=== PATIENT | male | born 1970 | race African-American/Black ===

== ENCOUNTER 2023-06-15 11:05 | Emergency (ER) | payer SELFPAY ==
[2023-06-15 11:35] VITALS: BP 146/80; PULSE 81; RESP 18; BMI 23.6
[2023-06-15 13:10] LABS: EPI CELLS 22 /uL (0-25.1); HYALINE CASTS 2 /uL (0-3.1); PH,URINE 6.5 (5.0-8.0); URINE APPEARANCE CLEAR; URINE BACTERIA 196 /uL (0-1359); URINE BILIRUBIN NEGATIVE (NEGATIVE); URINE COLOR YELLOW; URINE GLUCOSE (UA) 2+ (NEGATIVE); URINE KETONE NEGATIVE (NEGATIVE); URINE LEUK ESTERASE NEGATIVE (NEGATIVE); URINE NITRITE NEGATIVE (NEGATIVE); URINE PROTEIN 3+ (NEGATIVE); URINE RBC 33 /uL (0-23.9); URINE UROBILINOGEN 0.2 mg/dL (0.2-1.0)
[2023-06-15 13:33] LABS: URINE WBC 56.7 /uL (0-25.8)
[2023-06-15 13:41] LABS: URINE BARBITURATES NEGATIVE (NEGATIVE)
[2023-06-15 13:42] LABS: METHADONE, UR NEGATIVE (NEGATIVE); URINE AMPHETAMINES NEGATIVE (NEGATIVE); URINE BENZODIAZEPINES NEGATIVE (NEGATIVE)
[2023-06-15 13:44] LABS: COCAINE, UR POSITIVE (NEGATIVE); OPIATES, URI NEGATIVE (NEGATIVE); PHENCYCLIDINE,URINE NEGATIVE (NEGATIVE)
== END 2023-06-15 14:50 | disposition home or self-care (01) ==
LOC: JER 11:05
DX: T40.2X1A Poisoning by other opioids, accidental (unintentional), initial encounter (principal); F12.10 Cannabis abuse, uncomplicated; F14.10 Cocaine abuse, uncomplicated
CPT/HCPCS: 80307; 81003; 82962; 87086; 93005; 93010; 99284-25